=== PATIENT | female | born 1955 | race Caucasian/White ===

== ENCOUNTER 2018-06-22 08:40 | Outpatient (CLI) | payer OTHER ==
[2018-06-22] MEDS ORDERED: GADOPENTETATE DIMEGLUMINE 15 ML VIAL IV ONE (10:29)
== END 2018-06-22 21:07 | disposition home or self-care (01) ==
LOC: SMI 08:40
DX: E27.9 Disorder of adrenal gland, unspecified (principal); R10.9 Unspecified abdominal pain
CPT/HCPCS: 74183; A9579